=== PATIENT | female | born 2000 | race Caucasian/White ===

== ENCOUNTER 2018-02-26 12:18 | Emergency (ER) | payer OTHER ==
--- NOTE | 2018-02-26 12:34 | EDPHY ---
H & P Stated Complaint: c/o bilat lower abd pain/diarrhea x 5 days, pcp told pt hypotensive at appt Time Seen by Provider: 02/26/18 12:34 - Medical/Surgical History Hx Asthma: No Hx Chronic Respiratory Disease: No Hx Diabetes: No Hx Cardiac Disease: No Hx Renal Disease: No Hx Cirrhosis: No Hx Alcoholism: No Hx HIV/AIDS: No Hx Splenectomy or Spleen Trauma: No Other PMH: hypothyroid - Social History Smoking Status: Never smoked Constitutional: Initial Vital Signs Temperature (C) 36.9 C 02/26/18 12:22 Heart Rate 103 H 02/26/18 12:22 Respiratory Rate 18 02/26/18 12:22 Blood Pressure 135/80 H 02/26/18 12:22 O2 Sat (%) 97 02/26/18 12:22 O2 Delivery Mode Room Air Allergies/Adverse Reactions: No Known Allergies Allergy (Unverified 02/26/18 12:25) Home Medications: Medication Instructions Recorded Synthroid 02/26/18 Medical Decision Making ED Course/Re-evaluation: CHIEF COMPLAINT: Abdominal cramps and diarrhea HISTORY OF PRESENT ILLNESS: 17-year-old female who just returned from a vacation in [place]. She has been back for couple days and developed significant diarrhea yesterday. She has some lower abdominal cramping which is relieved by the diarrhea. She denies any nausea. She denies any localizing abdominal pain. She denies any fevers or chills. She denies any abdominal surgical history. REVIEW OF SYSTEMS: A comprehensive 10 system review of systems is otherwise negative aside from elements mentioned in the history of present illness and medical decision making. PHYSICAL EXAM: HR, BP, O2 Sat, RR. Temp noted General Appearance: Alert, well hydrated, appropriate, and non-toxic appearing. Head: Atraumatic without scalp tenderness or obvious injury Eyes: Pupils equal, round, reactive to light and accommodation, EOMI, no trauma , no injection. Ears: Clear bilaterally, no perforation, normal landmarks Nose: Atraumatic, no rhinorrhea, clear. Throat: There is no erythema or exudates, no lesions, normal tonsils, mucus membranes moist. Neck: Supple, nontender, no lymphadenopathy. Respiratory: No retractions, no distress, no wheezes, and no accessory muscle use. Lungs are clear to auscultation bilaterally. Cardiovascular: Regular rate and rhythm, no murmurs, rubs, or gallops. Good capillary refill all extremities. Gastrointestinal: Abdomen is soft, nontender, non-distended, no masses, no rebound, no guarding, no peritoneal signs. Musculoskeletal: Normal active ROM of all extremities, atraumatic. Neurological: Alert, appropriate, and interactive. The patient has non-focal cranial nerves, motor, sensory, and cerebellar exam. Skin: No rashes, good turgor, no nodules on palpation. Past medical history: Patient denies Past surgical history: Patient denies Family history: Noncontributory Social history: Recently , does not abuse tobacco drugs or alcohol, employed, just returned from [place] DIAGNOSTICS/PROCEDURES/CRITICAL CARE TIME: None indicated benign soft abdomen DIFFERENTIAL DIAGNOSIS: The differential diagnosis for the patient's abdominal cramps and diarrhea included but was not limited to gastroenteritis, gastritis, appendicitis, and medication side effect. MEDICAL DECISION MAKING: I have sent a GI pathogen off for this patient since she just returned from foreign travel and developed significant diarrhea. She is not systemically ill. At this point I will check labs to make sure electrolytes are okay and only treat if the GI pathogen panel is indicative. Labs so far are negative. Awaiting stool sample. Reassessed patient and discussed findings. She will be discharged home with instructions to call back for GI panel results and increase fluid intake in the meantime. Standard care and follow up instructions for traveler's diarrhea provided. Return precautions discussed. She is comfortable with this plan. - Data Points Laboratory Results: Laboratory Results 02/26/18 12:38 02/26/18 12:38 02/26/18 02/26/18 02/26/18 13:45 12:38 12:38 WBC RBC Hgb Hct MCV MCH MCHC RDW Plt Count MPV Neut % (Auto) Lymph % (Auto) Davis % (Auto) Eos % (Auto) Baso % (Auto) Nucleat RBC Rel Count Absolute Neuts (auto) Absolute Lymphs (auto) Absolute Monos (auto) Absolute Eos (auto) Absolute Basos (auto) Absolute Nucleated RBC Immature Gran % Immature Gran # Sodium 141 mEq/L mEq/L (135-145) Potassium 4.4 mEq/L mEq/L (3.3-5.0) Chloride 108 mEq/L mEq/L (97-110) Carbon Dioxide 22 mEq/l mEq/l (22-31) Anion Gap 11 mEq/L mEq/L (8-16) BUN 14 mg/dL mg/dL (7-23) Creatinine 0.6 mg/dL mg/dL (0.6-1.0) Estimated GFR > 60 Glucose 98 mg/dL mg/dL (70-100) Calcium 9.6 mg/dL mg/dL (8.5-10.4) Total Bilirubin 1.2 mg/dL mg/dL (0.1-1.4) Conjugated Bilirubin 0.0 mg/dL mg/dL (0.0-0.5) Unconjugated Bilirubin 1.2 mg/dL H mg/dL (0.0-1.1) AST 19 IU/L IU/L (14-46) ALT 37 IU/L IU/L (9-52) Alkaline Phosphatase 55 IU/L IU/L (38-126) Total Protein 7.6 g/dL g/dL (6.3-8.2) Albumin 4.7 g/dL g/dL (3.5-5.0) Lipase 181 IU/L IU/L (23-300) Beta HCG, Qual NEGATIVE Stool Occult Bld Scrn POSITIVE H (NEGATIVE) 02/26/18 12:38 WBC 8.69 10^3/uL 10^3/uL (3.80-9.50) RBC 4.96 10^6/uL 10^6/uL (4.18-5.33) Hgb 14.5 g/dL g/dL (12.6-16.3) Hct 44.4 % % (38.0-47.0) MCV 89.5 fL fL (81.5-99.8) MCH 29.2 pg pg (27.9-34.1) MCHC 32.7 g/dL g/dL (32.4-36.7) RDW 13.6 % % (11.5-15.2) Plt Count 325 10^3/uL 10^3/uL (150-400) MPV 9.2 fL fL (8.7-11.7) Neut % (Auto) 86.6 % H % (39.3-74.2) Lymph % (Auto) 8.9 % L % (15.0-45.0) Davis % (Auto) 3.9 % L % (4.5-13.0) Eos % (Auto) 0.2 % L % (0.6-7.6) Baso % (Auto) 0.2 % L % (0.3-1.7) Nucleat RBC Rel Count 0.0 % % (0.0-0.2) Absolute Neuts (auto) 7.52 10^3/uL H 10^3/uL (1.70-6.50) Absolute Lymphs (auto) 0.77 10^3/uL L 10^3/uL (1.00-3.00) Absolute Monos (auto) 0.34 10^3/uL 10^3/uL (0.30-0.80) Absolute Eos (auto) 0.02 10^3/uL L 10^3/uL (0.03-0.40) Absolute Basos (auto) 0.02 10^3/uL 10^3/uL (0.02-0.10) Absolute Nucleated RBC 0.00 10^3/uL 10^3/uL (0-0.01) Immature Gran % 0.2 % % (0.0-1.1) Immature Gran # 0.02 10^3/uL 10^3/uL (0.00-0.10) Sodium Potassium Chloride Carbon Dioxide Anion Gap BUN Creatinine Estimated GFR Glucose Calcium Total Bilirubin Conjugated Bilirubin Unconjugated Bilirubin AST ALT Alkaline Phosphatase Total Protein Albumin Lipase Beta HCG, Qual Stool Occult Bld Scrn Medications Given: Discontinued Medications Sodium Chloride (Ns) 1,000 mls @ 0 mls/hr IV EDNOW ONE; Wide Open PRN Reason: Protocol Stop: 02/26/18 12:45 Last Admin: 02/26/18 12:51 Dose: 1,000 mls Sodium Chloride (Ns) 1,000 mls @ 0 mls/hr IV EDNOW ONE; Wide Open PRN Reason: Protocol Stop: 02/26/18 13:30 Last Admin: 02/26/18 13:32 Dose: 1,000 mls Departure - Departure Disposition: Home, Routine, Self-Care Clinical Impression: Travelers' diarrhea, Gastroenteritis Condition: Good Instructions: Traveler's Diarrhea (ED), Gastroenteritis (ED) Additional Instructions: 1. Increase fluid intake. 2. Call back for stool results in 24-48 hours. 3. Follow up with your primary care provider for unimproved symptoms over the next 3-4 days. 4. Return for worsening of condition. Referrals: ISRA SOFIA [Primary Care Provider] - As per Instructions
[2018-02-26] MEDS ORDERED: NS 1,000 ML IV ONE ×2 (12:44→13:29)
[2018-02-26 12:51] LABS: PLATELET COUNT 325 10^3/uL (150-400)
[2018-02-26 14:51] VITALS: BP 115/68
== END 2018-02-26 14:48 | disposition home or self-care (01) ==
DX: K52.9 Noninfective gastroenteritis and colitis, unspecified (principal)